=== PATIENT | male | born 1970 | race Caucasian/White ===

== ENCOUNTER 2021-06-26 20:14 | Emergency (ER) | payer BC ==
[~2021-06-26] VITALS: Ht 180.3 cm; Wt 94.8 kg
[2021-06-26 20:20] VITALS: BP_SYST 138
[2021-06-26 20:26] VITALS: BP_SYST 134
--- NOTE | 2021-06-26 20:26 | NUR ---
Patient to ER bed 5 to gown for evaluation. Side rails up. Report given to Gilbert SCHMITT.
--- NOTE | 2021-06-26 20:45 | NUR ---
PT ALERT AND ORIENTED X 4 AMBULATORY WITH STEADY GAIT WITH A COMPLAINT OF ABDOMINAL PAIN SINCE YESTERDAY AFTER EATING SOUP. PER PT HE CONSUMES PEPTO BISMO WITH NO RELIEF. NO VOMITTING BUT REPORTS NAUSEA. LAST BM TODAY REPORTS NORMAL. PT DENIES CHEST PAIN, SOB, DIARRHEA, AND HEADACHE. PT HAS HISTORY OF HIGH CHOLESTEROL WITH RECENT WEIGHT LOSS. RECENT WEIGHT LOSS 8 LBS. PT REPORTS CHANGE IN DIET RECENTLY. AT BEDSIDE. PENDING MD LEO. WILL CONTINUE TO MONITOR NEEDED.
--- NOTE | 2021-06-26 20:55 | NUR ---
URINE SENT TO LAB
[2021-06-26 21:09] LABS: BILIRUBIN,URINE NEGATIVE (NEGATIVE); BLOOD, URINE NEGATIVE (NEGATIVE); CLARITY/URINE CLEAR (CLEAR); COLOR,URINE YELLOW (YELLOW); GLUCOSE,URINE 1+ (NEGATIVE); KETONES,URINE NEGATIVE (NEGATIVE); LEUKOCYTE ESTERASE ,URINE NEGATIVE (NEGATIVE); NITRITE, URINE NEGATIVE (NEGATIVE); PH,URINE 5.5 (5.0-8.0); PROTEIN URINE TRACE (NEGATIVE); UROBILINOGEN,URINE 0.2 (0.2-1.0)
[2021-06-26] MEDS ORDERED: MAG HYDROX/AL HYDROX/SIMETH 30 ML, DICYCLOMINE HCL 20 MG, LIDOCAINE VISCOUS 2% 15ML (PO... PO ONE ×3 (21:15)
[2021-06-26 21:16] LABS: BACTERIA,URINE None Seen /HPF (None Seen); MUCUS,URINE None Seen /LPF (None Seen); RBC,URINE NONE SEEN /HPF (0-3); WBC,URINE 0-3 /HPF (0-3)
[2021-06-26 21:31] LABS: BASOPHILS # (AUTO) 0.2 K/uL (0.0-0.2); BASOPHILS % (AUTO) 2.5 % (0.0-2.0); EOSINOPHILS # (AUTO) 0.1 K/uL (0.0-0.4); EOSINOPHILS % (AUTO) 1.4 % (0.0-4.0); HEMATOCRIT 45.1 % (36-54); HEMOGLOBIN 15.7 g/dL (14.0-18.0); LYMPHOCYTES # (AUTO) 1.9 K/uL (1.0-5.5); LYMPHOCYTES % (AUTO) 25.9 % (20.5-51.5); MEAN CORPUSCULAR HEMOGLOBIN 30 pg (27-31); MEAN CORPUSCULAR HGB CONC 35 % (32-36); MEAN CORPUSCULAR VOLUME 86 fL (79.0-98.0); MONOCYTES # (AUTO) 0.5 K/uL (0.0-1.0); MONOCYTES % (AUTO) 7.1 % (1.7-9.3); NEUTROPHILS # (AUTO) 4.5 K/uL (1.8-7.7); NEUTROPHILS % (AUTO) 63.1 % (40.0-70.0); PLATELET COUNT (AUTO) 206 K/uL (130-430); RED BLOOD CELL COUNT(AUTO) 5.22 MIL/uL (4.2-6.2); RED CELL DISTRIBUTION WIDTH 13.9 % (9.0-15.0); WHITE BLOOD COUNT (AUTO) 7.2 K/uL (4.8-10.8)
[2021-06-26 21:40] LABS: CALCIUM 8.2 mg/dL (8.4-11.0); CREATININE 1.19 mg/dL (0.55-1.30); POTASSIUM 4.6 mmol/L (3.5-5.1)
[2021-06-26 21:45] LABS: ALBUMIN 4.2 g/dL (3.4-4.8)
--- NOTE | 2021-06-26 22:22 | NUR ---
PT NOTIFIED OF DISCHARGE. PT PROVIDED WITH DISCHAGRE PAPERWORK, PROVIDED PT WITH EDUCATION REGARDING PRESCRIPTION ENCOURAGED PT TO FOLLOW UP WITH PRIMARY CARE PHYSICIAN WITHIN 3 DAYS. PT STATES RELIEF OF ABDOMINAL PAIN FROM GI COCKTAIL. PT TRANSPORT VIA CAR ACCOMPANIED BY . WITH ALL PERSONAL BELONGINGS. ALL QUESTIONS ANSWERED.
== END 2021-06-26 22:29 | disposition home or self-care (01) ==
LOC: SED 20:14
DX: R10.84 Generalized abdominal pain (principal)
CPT/HCPCS: 36415; 80053; 81000; 83690; 85025; 99283; J2001